=== PATIENT | male | born 1945 | race Caucasian/White ===

== ENCOUNTER 2023-05-12 07:26 | Day surgery (SDC) | payer MEDICARE, SELFPAY ==
[2023-05-12] VITALS (21 sets, daily range): BP systolic 100–170; BP diastolic 60–92; BMI 29.7
[2023-05-12] MEDS: LOW STRENGTH ASPIRIN 81 MG PO (08:10)
[2023-05-12 10:10] LABS: ACT-LR - POC 256 Seconds (116-155)
[2023-05-12 10:38] LABS: ACT-LR - POC 356 Seconds (116-155)
--- NOTE | 2023-05-12 11:21 | CONSULT.STRU ---
Addendum entered and electronically signed by NATHALY Kraus 06/03/23 06:59:
Reviewed Mr. Judge with the heart team. The team is agreeable patient is an appropriate candidate for TF TAVR utilizing a 29mm S3 via right transfemoral access. Will call to schedule.
Original Note:
Consultation
-
Date/Time Consultation Requested: 05/12/2023 1045
Date/Time Consultation Performed: 05/12/2023 11:15
Requesting Provider: Jordy Mckinney MD
Performing Provider: NATHALY Kraus
Reason for Consultation: /TAVR
Patient History
Physicians
Family Physician: Alexander Serrano MD
Outpatient Filter Tender: Helen Obando MD
Primary Filter Tender: Helen Obando MD
History of Present Illness
Mr. Judge is a very pleasant 78 yom that presents with severe symptomatic associated with GREY. His echocardiogram from 04/22/2023 is notable for an AV P/m 80/49, JAQUAN 0.9, DI 0.2, Pk Estuardo 4.48, EF 60, mild MR, PAP 30 mmHg. Discussed the
pathophysiology and treatment options of including SAVR and TAVR. Explained the evaluation process comprising of CT scan, CT surgical consult, Dental clearance, and a heart team discussion. TAVR booklet, contact information, appointments and
prescriptions given to patient. Allowed for and answered questions at bedside.
Past Medical History
Past Medical History: CAD, Cancer (colon ca, prostate ca), Valvular Disease (Aortic Stenosis) and Other (dyslipidemia, c-diff)
Past Surgical History
Past Surgical History: Tonsilectomy and Other (inguinal hernia repair, hemicolectomy)
Dental History
UTD with dental. Patient sees Dr. Robison and has an appointment 05/20. Will fax dental clearance form/
Family History
Mother: at Age
Father: at Age
Social History
Alcohol: Daily (1-2 beers)
Drug: None
Tobacco: Former Smoker
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
Allergies
Allergy/AdvReac Type Severity Reaction Status Date / Time
No Known Allergies Allergy Unverified 02/02/21 08:31
Home Medications
Medication Instructions Recorded Confirmed Type
Cholecalciferol (Vitamin D3) 50 mcg PO DAILY Supplement 02/02/21 05/12/23 History
[Vitamin D3]
allopurinol 300 mg tablet 150 mg PO QPM gout 02/02/21 05/12/23 History
cyanocobalamin (vitamin B-12) 500 mcg PO DAILY Supplement 02/02/21 05/12/23 History
1,000 mcg tablet
melatonin 10 mg capsule 10 mg PO .HS PRN sleep 02/02/21 05/12/23 History
amlodipine 5 mg tablet 5 mg PO DAILY bp 05/12/23 05/12/23 History
aspirin 81 mg chewable tablet 81 mg PO DAILY #1 tab 05/12/23 Rx
atorvastatin 40 mg tablet 40 mg PO QPM cholesterol 05/12/23 05/12/23 History
clopidogrel 75 mg tablet 75 mg PO DAILY #90 tabs 05/12/23 Rx
metoprolol tartrate 50 mg tablet 50 mg PO BID bp 05/12/23 05/12/23 History
omega 7-bwl-zua-fish oil 1,200 mg 1,200 cap PO DAILY Supplement 05/12/23 05/12/23 History
(144 mg-216 mg) capsule (Fish Oil)
STS%
STS %: 1.8
Review of Systems
-
History Source: Patient
General: Reports No Symptoms
HEENT: Reports No Symptoms
Respiratory: Reports GREY
Cardiac: Reports No Symptoms
Abdomen/GI: Reports No Symptoms
: Reports No Symptoms
Skin: Reports No Symptoms
Neurological: Reports No Symptoms
Physical Exam
Vital Signs
Temp 97.9 F 05/12/23 07:49
Temp route: Oral 05/12/23 07:49
Pulse 57 05/12/23 07:49
Resp Rate 22 05/12/23 07:49
Blood pressure 170/92 05/12/23 07:49
Blood pressure extremity used: Right upper arm 05/12/23 07:49
Position: Sitting 05/12/23 07:49
SaO2 99 05/12/23 07:49
Oxygen Mode of Delivery Room air 05/12/23 07:49
Can the patient verbally communicate their pain? Yes 05/12/23 10:47
Actual Weight 88.5 kg 05/12/23 07:49
Body Mass Index (BMI) 29.7 05/12/23 07:49
Labs
05/06/2023
HH: 14.9/43.0
Plt: 190K
BUN/Creatinine: 17/0.9
Diagnostic Studies
Echo 04/22/2023:
�CONCLUSIONS
�Normal left ventricular size and systolic function with mild concentric left
�ventricular hypertrophy
�Left ventricular ejection fraction by Byers's biplane method 60%
�Normal RV size and systolic function
�Mildly dilated left atrium
�Mildly thickened mitral valve leaflets with mild MR.
�Trace tricuspid regurgitation
�Severe aortic stenosis with peak aortic valve velocity 4.48 m/s; peak/mean
�transaortic gradients of 80/49 mmHg, respectively. The aortic valve by the
EKG 05/12/2023:
Blood Pressure : / mmHG
Vent. Rate : 049 BPM � � Atrial Rate : 049 BPM
�� P-R Int : 240 ms� � � � � QRS Dur : 074 ms
� � QT Int : 456 ms � � � P-R-T Axes : 014 002 012 degrees
�� QTc Int : 411 ms
�
SINUS BRADYCARDIA WITH 1ST DEGREE A-V BLOCK
OTHERWISE NORMAL ECG
NO PREVIOUS ECGS AVAILABLE
Confirmed by DASH NGO MD ([id number]) on 05/12/2023 11:12:12 AM
Exam
General: Well Developed
HEENT: Normocephalic
Respiratory: Clear
Cardiac: Regular Rhythm and Murmur (III/ YANG)
GI: Soft, Non Tender and Non Distended
Rectal: Deferred by Provider
Skin: Warm and Dry
Neuro: Awake, Alert, Oriented and AO x 3
Psych: Calm
Assessment / Plan
-
Aortic Stenosis
Continue TAVR evaluation
Trend creatinine (Rx given)
TAVR CT scan (05/30)
CT surgical consult (05/19 TT)
Frailty testing and KCCQ12 at consult
Dental clearance ( Will fax form)
Continue aspirin/plavix (recent CHIP)
Heart team discussion.
Data Reviewed
-
EKG: Report Reviewed by me
[place] [employer]ver: Discussed with Physician
Echo: Report Reviewed by me and Discussed with Physician
Labs: Labs Reviewed by me
Old Records: Reviewed
Total Time Spent with Patient (in minutes): 45
--- NOTE | 2023-05-12 12:38 | ITS.CL.CATH ---
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
Cardiac Catheterization
Procedure Report:
LEFT HEART CATH AND CORONARY INTERVENTION
Date of Procedure: May 12, 2023
Referring: Dr. Helen Obando
PROCEDURES:
1. Coronary angiography
2. Hemodynamic assessment of LAD with the iFR measuring below the ischemic threshold
3. Successful stenting of mid LAD with a 3.5 x 33 mm Xience stent that was implanted at nominal pressures then postdilated to high pressures initially with a 3.5 mm noncompliant balloon then in the proximal to midportion of the stent with a 3.75 mm
noncompliant balloon
INDICATION: This is a 78-year-old gentleman with a past medical history notable for hypertension, moderate coronary artery disease with prior iFR negative LAD stenosis, and aortic stenosis. He is experience some substernal chest tightness
intermittently. Symptoms at times would occur with exertion and at times would occur with minimal exertion. He has been feeling more short of breath and his most recent echocardiogram was notable for a mean aortic valve gradient of 49 mmHg and
peak aortic valve velocity of 4.48 m/s. He is now referred for coronary angiography
Note: Patient was stationed on the [employer] [place] [id number]
ACCESS: Right radial artery, 6 Frisian sheath
HEMODYNAMICS (mmHg):
AO (s/d, m) : 112/58
CORONARY FINDINGS
Dominance: Right
LEFT MAIN: Normal
LEFT ANTERIOR DESCENDING: The LAD arises normally from the left main and runs in the anterior interventricular groove. There is a 60-70% stenosis in the mid LAD just beyond the small second diagonal branch with diffuse noncritical luminal
irregularities noted throughout the remainder of the LAD. The iFR serially measured below the ischemic threshold at 0.85, 0.84, and 0.84.
CIRCUMFLEX: The circumflex is a medium caliber nondominant vessel giving rise to a single obtuse marginal branch that bifurcates in its midportion. Minor irregularities are present.
RIGHT CORONARY: The right coronary artery is a large-caliber dominant vessel
HEMODYNAMIC ASSESSMENT OF THE LAD WITH A [employer] OMNI WIRE: The origin of the left main was cannulated with a 6 Fr XB 3.5 guide catheter. Intravenous heparin was administered and the ACT was followed during the procedure. Two hundred micrograms of
intracoronary nitroglycerin was given through the guide catheter. A [employer] Omni wire was advanced to the guide catheter tip and normalized to guide catheter pressure. The Omni wire was then carefully manipulated across the stenosis in the mid LAD
and advanced to the apical LAD where the iFR serially measured below the ischemic threshold at 0.5, 0.84, and 0.84. The decision was made to proceed with percutaneous revascularization of the mid LAD stenosis. (Of note, the iFR on the last study
measured borderline at 0.90)
ANGIOPLASTY PROCEDURE DETAIL: Upon review of the diagnostic catheterization films and hemodynamic data the decision was made to proceed with percutaneous revascularization of the stenosis in the mid LAD. A 180 mg loading dose of ticagrelor was
administered at the beginning of the interventional procedure. A [employer] guidewire was advanced to the apical LAD. Primary stenting was undertaken with placement of a 3.5 x 33 mm Xience stent that was implanted at nominal pressures. The entire
stented segment was postdilated with a 3.5 mm noncompliant balloon up to 22 danae in the proximal and midportion of the stent and at 14-16 danae distally. The stent appeared modestly underexpanded just beyond the diagonal branch and a 3.75 mm
noncompliant balloon was utilized to redilate the stent again between 18 and 22 atmospheres in the proximal and midportion of the stent.
RADIATION SUMMARY: Fluoro Time (min): 9.8, Dose (mGy): 863, DAP (Gy.cm2) : 45.4
CONCLUSIONS
1. Severe symptomatic aortic stenosis
2. Hemodynamically significant mid LAD stenosis successfully stented with a 3.5 x 33 mm Xience stent that was postdilated with a 3.5 and 3.75 mm noncompliant balloon with an excellent angiographic result
RECOMMENDATIONS
1. Uninterrupted dual antiplatelet therapy between 6 and 12 months
2. Proceed with TAVR evaluation
Copy to: Dr. Helen Obando
[2023-05-12 15:45] LABS: ACT-LR - POC > 397 Seconds (116-155)
--- NOTE | 2023-05-12 16:26 | W.PN.UPDATE ---
Update Note
Progress Note Update
78 yo WM s/p PCI LAD x1 CHIP (same day). He feels good, no cp, sob, luli diet, voiding, amb w/o dizziness. EKG SR no ST changes, R Rad site c/d/i. He was given Brilinta load and switched to plavix 600mg prior to d/c. DAPT ASA/Plavix. He has severe
and will undergo w/u outpt for TAVR. Cardiac rehab c/s. Activity restrictions reviewed. He has f/u apt with CT surgery next week. He is for d/c home after 430p.
Referring: Dr. Helen Obando
PROCEDURES:
1.� Coronary angiography
2.� Hemodynamic assessment of LAD with the iFR measuring below the ischemic threshold
3.� Successful stenting of mid LAD with a 3.5 x 33 mm Xience stent that was implanted at nominal pressures then postdilated to high pressures initially with a 3.5 mm noncompliant balloon then in the proximal to midportion of the stent with a 3.75 mm
noncompliant balloon
INDICATION: This is a 78-year-old gentleman with a past medical history notable for hypertension, moderate coronary artery disease with prior iFR negative LAD stenosis, and aortic stenosis.� He is experience some substernal chest tightness
intermittently.� Symptoms at times would occur with exertion and at times would occur with minimal exertion.� He has been feeling more short of breath and his most recent echocardiogram was notable for a mean aortic valve gradient of 49 mmHg and
peak aortic valve velocity of 4.48 m/s.� He is now referred for coronary angiography
== END 2023-05-12 16:13 | disposition home or self-care (01) ==
LOC: CATH 07:26
PROVIDERS: ATTENDING PHYSICIAN Internal Medicine Interventional Cardiology; FAMILY PHYSICIAN Internal Medicine; OTHER PHYSICIAN Internal Medicine Cardiovascular Disease
DX: I25.10 Atherosclerotic heart disease of native coronary artery without angina pectoris (principal); I10 Essential (primary) hypertension; I35.0 Nonrheumatic aortic (valve) stenosis; R07.89 Other chest pain; R06.02 Shortness of breath; Z79.02 Long term (current) use of antithrombotics/antiplatelets; Z79.82 Long term (current) use of aspirin
CPT/HCPCS: 85347; 93005; 93454; 93571; C1725; C1769; C1874; C1887; C1894; C9600; Q9967

== ENCOUNTER → 2023-05-23 07:57 | Outpatient (REF) | payer MEDICARE, SELFPAY | LOC: RAD 07:57 | PROVIDERS: ATTENDING PHYSICIAN Nurse Practitioner Acute Care; FAMILY PHYSICIAN Internal Medicine | DX: I35.0 Nonrheumatic aortic (valve) stenosis (principal) | CPT/HCPCS: 74174; 75572; Q9967 ==

== ENCOUNTER 2023-06-16 05:31 | Inpatient (IN) | payer MEDICARE, SELFPAY ==
[2023-06-08 11:57] VITALS: BMI 28.2
[2023-06-08 12:43] LABS: % Basophils 0.7 % (0-2); % Immature Granulocytes 0.4 % (0-0.5); % Lymphocytes 15.6 % (20.5-51.1); % Monocytes 6.7 % (1.7-9.3); % Neutrophils 68.6 % (42.2-75.2); Absolute Eosinophils 0.4 10^3/uL (0-0.7); Absolute Lymphocytes 0.7 10^3/uL (1.2-3.4); Absolute Monocytes 0.3 10^3/uL (0.1-0.6); Absolute Neutrophils 3.2 10^3/uL (1.4-6.5); Hematocrit 39.3 % (39.0-52.0); Mean Corp Hgb Conc. 35.6 g/dL (33.0-37.0); Mean Corpuscular Hgb 31.9 pg (27.0-31.0); Mean Corpuscular Volume 89.5 fL (80.0-94.0); Mean Platelet Volume 9.3 fL (7.4-10.4); Nucleated Red Blood Cells % 0 % (-); Platelet Count 175 10^3/uL (130-400); Red Blood Cell Count 4.39 10^6/uL (4.70-6.10); Red Cell Dist. Width 12.8 % (11.5-14.5); White Blood Cell Count 4.6 10^3/uL (4.8-10.8)
[2023-06-08 12:54] LABS: INR 0.98
[2023-06-08 12:55] LABS: APTT 33.3 Sec (23.4-35.0)
[2023-06-08 12:57] LABS: ALT (SGPT) 20 U/L (0-50); AST (SGOT) 22 U/L (17-59); Albumin 4.2 g/dl (3.5-5.0); Alkaline Phosphatase 77 U/L (38-126); Blood Urea Nitrogen 21 mg/dl (9-20); Calcium 9.4 mg/dl (8.4-10.2); Carbon Dioxide 27 mmol/L (22-30); Chloride 101 mmol/L (98-107); Direct Bilirubin 0.3 mg/dl (0.0-0.4); Estimated Creatinine Clearance 70 ml/min; Glucose 110 mg/dl (70-99); Potassium 4.5 mmol/L (3.5-5.1); Sodium 137 mmol/L (135-145); Total Bilirubin 1.3 mg/dl (0.2-1.3); Total Protein 7.5 g/dl (6.3-8.2); eGFR > 60.00
[2023-06-08 13:01] LABS: Urine Albumin Negative (Neg - Trace); Urine Bilirubin Negative (Negative); Urine Character Clear (Clear); Urine Color Yellow; Urine Glucose Negative (Negative); Urine Ketone Negative (Negative); Urine Leukocyte Negative (Negative); Urine Nitrite Negative (Negative); Urine Occult Blood Negative (Negative); Urine Specific Gravity 1.025 (<1.030); Urine Urobilinogen Negative (Neg - 1+)
[2023-06-08 13:06] LABS: NT-proBNP 117 pg/ml
--- NOTE | 2023-06-08 14:17 | CM ---
Chart reviewed. Met with the patient in PAT. Patient is independent of ADLS, lives with his in a 2 STH, 2 TROY, 0 DME. Reviewed preoperative and postoperative instructions and restrictions, along with showering guidelines. Gave patient 2
soaps. Patient is agreeable to a home visit by CT Transitional RN. Plan is for the patient to return home with CT Transitional RN.
[2023-06-08 14:24] LABS: Glycohemoglobin (HgbA1c) 5.5 % (4.0-5.6)
--- NOTE | 2023-06-08 14:38 | W.PN.UPDATE ---
Update Note
Progress Note Update
Patient seen in pre-admission testing. Medication list verifed. Reviewed risks of TAVR including PPM, Bleeding and Stroke. Allowed for and answered questions. Patient will arrive at 0530 on 06/16/2023. He will remain on his aspiring and plavix and
take dose prior to arrival that day. He is aware he will receive a call next Tue. to confirm arrival time.
[2023-06-16] VITALS (29 sets, daily range): BP systolic 78–134; BP diastolic 52–74; BMI 27.6
--- NOTE | 2023-06-16 06:14 | PTCARENOTE ---
Pt rec'd as direct adm from home for TAVR. Adm hx taken. 20 g placed in right arm with ABO sent. Pt clipped and washed with chg wipes.
sinus on telemetry. spouse at bedside
[2023-06-16] MEDS: ZINACEF 1500 MG IV ×2 (07:00→08:00)
[2023-06-16] MEDS: STERILE WATER FOR INJECTION 16 ML IV ×2 (07:00→08:00)
[2023-06-16 08:21] LABS: ACT-LR - POC 350 Seconds (116-155)
--- NOTE | 2023-06-16 08:53 | W.CVOR.SURPR ---
CVOR Surgeon Immed Pre Op
-
I have examined this patient prior to performance of the scheduled procedure.
The patient's condition is unchanged from the time of the dictated/written History and
Physical and the patient is able to undergo the scheduled procedure.
--- NOTE | 2023-06-16 08:53 | W.IMMPOSTOP ---
Surgical Immed Post Op Note
-
Dicated: [id number]
STRUCTURAL HEART PROCEDURE NOTE: TAVR
Preoperative Dx:
Severe aortic stenosis (P/M: 80/49), trace AI
Colon CA (s/p XRT)
HTN/HLD
CAD s/p recent LAD stent
Hx of C-diff
Hx of Prostate CA
Postoperative Dx:
Same
Procedures:
1) L MOTORCYCLE DESIGNER access w/ tactile, U/S, and fluoroscopic guidance, micropuncture technique, 6Fr sheath placement
2) L CFV access w/ U/S and fluoroscopic guidance, seldinger technique, 6Fr sheath placement
3) R MOTORCYCLE DESIGNER access w/ tactile, U/S, and fluoroscopic guidance, micropuncture technique, limited angiography, 6Fr sheath placement
4) Placement of pigtail catheter in RCC w/ repeat aortography & determination of ideal co-planar valve deployment angle
5) Placement of temporary RV pacing wire w/ threshold testing
6) Placement of perclose sutures x 2 into R MOTORCYCLE DESIGNER, 8Fr sheath placement
7) Placement of Dan E-sheath
8) Wire purchase across stenotic AV (LVEDP assessment; 22mmHg)
9) R TF TAVR w/ placement of 29mm UGO 3
10) Completion aortography
11) Completion TTE (mean 4/5, no AI)
12) Removal of valve delivery system/Dan E-sheath w/ R MOTORCYCLE DESIGNER mgmt w/ perclose sutures x 2, 8Fr angioseal, manual pressure; completion angiography
13) Limited angiography of L MOTORCYCLE DESIGNER
14) Removal of L MOTORCYCLE DESIGNER 6Fr sheath w/ mgmt w/ 6Fr angioseal, manual pressure
15) Removal of temporary pacing wire & L CFV sheath, manual pressure
Station Engineer Chief:
Dr. Jordy Mckinney
Cardiac Surgeon:
Dr. Deepak Cook
Anesthesia:
MAC & local to B/L groins
Implants:
Perclose sutures x 2
8Fr angioseal x 1
6Fr angioseal x 1
Dan [employer], Model [id number], SN [id number], 29mm
Cath Data:
Start: 0743hrs, Deploy: 0821hrs, End: 0837hrs
FT: 9.8min, mGy: 585.39, DAP: 67.3662, Contrast: 112mL
Post-TTE: mean gradient 4-5mmHg, no AI
Complications:
None
Condition:
Stable/guarded to recovery
--- NOTE | 2023-06-16 09:17 | ITS.CL.TAVR ---
Substance Abuse Technician - TAVR Report
TAVR PRocedure
Procedure Report:
TRANSCATHETER AORTIC VALVE REPLACEMENT
Date of Procedure: June 16, 2023
Referring: Dr. Helen Obando
Operators: Drs. Jordy Mckinney and Deepak Cook
PROCEDURE PERFORMED:
1. Successful placement of 29 mm Dan Ilene S3 aortic valve via right common femoral approach.
PREPROCEDURE NYHA CLASS: 3
DESCRIPTION OF PROCEDURE: The patient was referred for assessment of severe symptomatic aortic stenosis and following a comprehensive evaluation it was felt that transcatheter aortic valve replacement (TAVR) would be the most appropriate treatment.
Informed consent was obtained prior to the procedure. A 'time-out' was called and the procedural plan was verbally confirmed by anesthesia, surgery, perfusion, and chemical laboratory technician staff.
Arterial and venous access site were obtained in the left common femoral artery and common femoral vein using ultrasound guidance and micropuncture technique. 6 Fr sheaths were inserted. Ultrasound guidance was then used to obtain arterial access
in the right common femoral artery and a 6 Fr. sheath was inserted. Angiography was performed and the arteriotomy site appeared appropriate for preclosure with two Perclose devices.
A 5 Fr transvenous pacing wire was advanced to the right ventricle where excellent pacing thresholds were obtained. A 5 Fr. pigtail catheter was then advanced to the proximal ascending aorta/right aortic cusp where angiography was performed in
multiple angles to define the co-planar angle that was most appropriate valve deployment (SNYDER 8/CAU 6).
Attention was then turned back to the right common femoral arteriotomy. Preclosure with 2 Perclose devices was performed and an 8 Fr sheath was then inserted back into the common femoral artery over a J-tipped guidewire. An AL1 catheter was then
advanced over the J-wire to the proximal descending aorta. An Amplatz Extra Stiff 0.035' J-tip wire was inserted to provide extra-support to facilitate the Dan eSheath delivery. The 16 Fr. Dan eSheath was advanced to the right common
femoral arteriotomy site and gently advanced to the descending thoracic aorta.
An AL1 catheter was advanced through the Dan eSheath over a 0.035' J-tip guide wire. The AL1 catheter was positioned just above the aortic valve. A 0.035' Straight tip wire probed the aortic valve and crossed the stenotic leaflets. The AL1
was then advanced to the mid left ventricle where the LVEDP measured 22 mmHg. An Amplatz Extra-stiff wire with a generous curved tip was then positioned in the left ventricular apex. A 29 mm Dan Ilene S3 valve was brought to the table and the
orientation of the valve on the balloon delivery system was confirmed by all operators. The Ilene S3 valve was advanced through the eSheath and into the proximal descending thoracic aorta. The Ilene S3 valve was centered on the delivery balloon
and the entire system was retroflexed as it crossed the aortic arch. The Ilene S3 delivery system was then advanced across the stenotic valve and the 29 mm Ilene S3 valve was deployed during rapid pacing. The valve deployment was uneventful.
Transthoracic echocardiographic images post valve deployment revealed minimal aortic insufficiency with excellent position of the aortic prosthesis. The post valve deployment mean gradient measured 4 mmHg.
The Dan balloon and delivery system were then removed. The Dan sheath was removed and the Perclose knots were advanced to the arteriotomy site. There was a significant residual ooze from the right femoral arteriotomy and an 8 Fr. Angioseal
was inserted with excellent result. Angiography demonstrated no iliofemoral issues.
Fluoro Time: 9.8 min, Dose: 585 mGy, DAP : 67.4 Gy.cm2
CONCLUSIONS:
1. Severe symptomatic aortic stenosis. Successful deployment of a 29 mm Ilene S3 valve with no aortic insufficiency and a mean gradient of 4 mmHg
Copy to: Dr. Helen Obando
[2023-06-16] MEDS: VITAMIN D3 (cholecalciferol) PO (10:00)
[2023-06-16] MEDS: LOPRESSOR PO (10:00)
--- NOTE | 2023-06-16 11:12 | CM ---
Chart reviewed. Patient is in the OR today. Patient is independent of ADLS, lives with his in a 2 STH, 2 TROY, 0 DME. Plan is for the patient tor return home with CT Transitional RN. CM to follow
--- NOTE | 2023-06-16 11:12 | PTCARENOTE ---
Received patient post TAVR back into room 224. Patient is AAO x 3, no complaints of pain, lying supine in the bed. On RA with pulse ox of 98%, SR on the monitor. Scant drainage on dressing left groin which was marked. Drainage now noted on dressing
right groin which was marked. Bilateral groins soft, with no signs of hematoma. Strong bilateral pedal pulses palpated. Neuro check within normal limits. Family at the bedside, monitoring VS, call morejon within reach.
--- NOTE | 2023-06-16 13:10 | PTCARENOTE ---
Right groin dressing with moderate amount of drainage contained on 2x2 with tegaderm, otherwise area soft with strong pedal pulse. CT surgery PA notified and dressing changed. Dressing now checked prior to sitting the patient up and drainage again
noted and marked. Right groin soft with no signs of hematoma. TT sent to CT surgery PA coordinator of online programs.
--- NOTE | 2023-06-16 15:18 | PTCARENOTE ---
Right groin dressing changed by CT surgery NEFTALI. Patient assisted to the bathroom and voided qs. Right groin dressing remains clean, dry and intact. Resting in bed, offers no complaints.
[2023-06-16] MEDS: VITAMIN B-12 PO (15:26)
[2023-06-16] MEDS: STERILE WATER FOR INJECTION 8.30000000000000071 ML IV (15:28)
[2023-06-16] MEDS: ZINACEF 750 MG IV (15:28)
[2023-06-16] MEDS: FLUSH (NSS) 2 FLUSH IV (15:29)
[2023-06-16] MEDS: NORVASC 5 MG PO (17:39)
[2023-06-16] MEDS: LIPITOR 40 MG PO (17:39)
[2023-06-16] MEDS: LOPRESSOR 50 MG PO (20:33)
[2023-06-16] MEDS: VITAMIN D3 (cholecalciferol) 50 MCG PO (20:33)
[2023-06-16] MEDS: ZYLOPRIM 150 MG PO (22:33)
[2023-06-16] MEDS: ASPIR LOW (ENTERIC COATED) 81 MG PO (22:33)
--- NOTE | 2023-06-16 22:52 | PTCARENOTE ---
assumed care of patient at the change of shift. AAOx3. neuro intact. ambulating in the room independently, steady on his feet. HR SR with a first degree AVB 70s-80s. bp stable. denies any pain/sob. b/l groin sites intact, no new drainage, soft. + DP
pulses. IS encouraged. educated patient to inform RN with any changes. call morejon within reach. calls appropriately.
[2023-06-17 04:06] VITALS: BP 123/71
[2023-06-17 04:26] LABS: Hematocrit 33.4 % (39.0-52.0); Hemoglobin 11.9 g/dL (13.0-18.0); Mean Corp Hgb Conc. 35.6 g/dL (33.0-37.0); Mean Corpuscular Hgb 31.6 pg (27.0-31.0); Mean Corpuscular Volume 88.8 fL (80.0-94.0); Mean Platelet Volume 9.2 fL (7.4-10.4); Platelet Count 111 10^3/uL (130-400); Red Blood Cell Count 3.76 10^6/uL (4.70-6.10); Red Cell Dist. Width 12.6 % (11.5-14.5)
[2023-06-17 05:14] LABS: Blood Urea Nitrogen 17 mg/dl (9-20); Calcium 8.6 mg/dl (8.4-10.2); Carbon Dioxide 24 mmol/L (22-30); Chloride 101 mmol/L (98-107); Estimated Creatinine Clearance 79 ml/min; Glucose 98 mg/dl (70-99); Potassium 4.2 mmol/L (3.5-5.1); Sodium 133 mmol/L (135-145); eGFR > 60.00
[2023-06-17 06:00] VITALS: BMI 27.9
--- NOTE | 2023-06-17 06:58 | W.PN.CT ---
Today's Communication / Plan
-
-pod #1
-no issues overnight
-nsr 70s overnight. No bre or pause. 4 beat run PVCs early postop. Continue bid Lopressor
-Echo today
-current meds (ASA, Plavix, Lopressor, Norvasc, Lipitor)
-encourage IS, OOB
Assessment / Plan
-
- Severe symptomatic - s/p R TF TAVR w/ placement of 29mm UGO 3 on 06/16/23, pod #1
-LVEDP assessment- 22mmHg
-Post-TTE: mean gradient 4-5mmHg, no AI
- Colon CA (s/p XRT/chemo and hemicolectomy 2012)
- HTN/HLD
- CAD s/p recent LAD stent 05/12/23- on ASA and Plavix preop
- Hx of C-diff
- Hx of Prostate CA with seed implant
- Inguinal hernia
Discussed patient care with: Nursing and Care Team
Subjective
Procedure
- s/p R TF TAVR w/ placement of 29mm UGO 3 on 06/16/23
-
Date of Service: June 16, 2023
Objective Data
-
Lab Results
06/08/23 12:08
06/08/23 12:08
PT 13.0 Sec (11.4-14.6) 06/08/23 12:08
INR 0.98 06/08/23 12:08
APTT 33.3 Sec (23.4-35.0) 06/08/23 12:08
Vital Signs
Vital Signs
Temp Pulse Resp BP Pulse Ox
98.9 F 70 18 119/68 96
06/16/23 22:34 06/16/23 21:30 06/16/23 22:34 06/16/23 20:33 06/16/23 22:34
CT Intake/Output/Weight
06/16/23 06/16/23 06/17/23
06:59 18:59 06:59
Intake Total 720 / 960 240 / 960
Output Total 850 / 850
Balance -130 / 110 240 / 110
SaO2: 96
Physical Exam
-
General: Awake and AOx3
Cardiovascular: Regular rate & rhythm, No Murmurs and No Rub
Respiratory: Clear
Incision: Other (groins are cdi, soft, nontender, no hematoma b/l)
Extremities: No Edema (2+ palpable DPs b/l)
Data Reviewed
-
Lab Results: Results Reviewed
Medications: Active Meds Reviewed
Chest X-Ray: Report Reviewed and Image Reviewed
ECG: Report Reviewed and Image Reviewed
[2023-06-17 07:19] VITALS: BP 113/67
[2023-06-17] MEDS: PLAVIX 75 MG PO (09:11)
[2023-06-17] MEDS: LOPRESSOR 50 MG PO (09:11)
[2023-06-17] MEDS: VITAMIN D3 (cholecalciferol) 50 MCG PO (09:12)
[2023-06-17] MEDS: VITAMIN B-12 500 MCG PO (09:12)
--- NOTE | 2023-06-17 09:51 | W.PN.CARDCBS ---
Addendum entered and electronically signed by Dilan Grace MD 06/17/23 15:24:
I saw and examined the patient.
The IGNITER CAPPER or PA's note was reviewed and I agree with the note.
Comment: General: Well developed, well nourished in NAD.
Neck: Supple, no JVD, HJR, carotids +2 B/L, no bruits bilaterally.
Heart: Non displaced PMI, RRR, no murmurs, No S3, S4, no rubs.
Lungs: Clear to auscultation bilaterally, no wheeze, rhonchi, rubs bilaterally,
normal expiratory phase.
Extremities: No clubbing, cyanosis or edema bilaterally.
Neuro: Grossly nonfocal, awake, alert and oriented x3.
Stable cardiology status for discharge. Repeat echo okay. Discussed with family at bedside and CT surgery. Follow-up arranged
Original Note:
Today's Communication / Plan
-
Repeat echo today
Likely for discharge this afternoon.
Continue aspirin and plavix
Impression / Plan
-
PCP: Dr. Serrano
Clipping Marker: Dr. Obando
Impression:
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
CAD
s/p PCI of LAD w/ 3.5 x33 mm Xience CHIP 05/12/2023
HTN
HLD
Colon cancer
h/o prostate cancer
Echo 04/22/2023: EF 60%, mild cLVH, mild MR, severe with peak/mean gradients 80/49 mmHg, trace TR, estimated PAP 30 mmHg
Echo 06/17/2023: study pending
Plan:
-He has a history of symptomatic severe and underwent TAVR 06/17/2023. POD #1.
-Post op echo w/ mean gradient 4 mmHg. Repeat echo pending today.
-Feeling well this AM, walking around his room without difficulty.
-Did have brief 4 run of NSVT noted on tele yesterday afternoon. Asymptomatic.
-BP and HR stable. Continue amlodipine and lopressor.
-Continue aspirin and plavix with recent PCI to LAD.
-On lipitor 40mg daily.
-Likely for d/c later today.
Progress Note - Clipping Marker
Subjective
Date of Service: June 17, 2023
Feeling well. No complaints.
Objective
Labs:
06/17/23 04:15
06/17/23 04:15
Labs
Hgb 11.9 g/dL (13.0-18.0) L 06/17/23 04:15
Hct 33.4 % (39.0-52.0) L 06/17/23 04:15
Plt Count 111 10^3/uL (130-400) L 06/17/23 04:15
PT 13.0 Sec (11.4-14.6) 06/08/23 12:08
INR 0.98 06/08/23 12:08
APTT 33.3 Sec (23.4-35.0) 06/08/23 12:08
Sodium 133 mmol/L (135-145) L 06/17/23 04:15
Potassium 4.2 mmol/L (3.5-5.1) 06/17/23 04:15
BUN 17 mg/dl (9-20) 06/17/23 04:15
Creatinine 0.8 mg/dL (0.7-1.3) 06/17/23 04:15
Glucose 98 mg/dl (70-99) 06/17/23 04:15
Vital Signs and I&O:
Vital Signs
Temp Pulse Resp BP Pulse Ox
98.4 F 70 16 113/67 95
06/17/23 07:18 06/17/23 07:30 06/17/23 07:18 06/17/23 07:19 06/17/23 09:06
Vital Signs
Temp Pulse Resp BP Pulse Ox
98.4 F 70 16 113/67 95
06/17/23 07:18 06/17/23 07:30 06/17/23 07:18 06/17/23 07:19 06/17/23 09:06
Intake & Output
06/15/23 06/16/23 06/17/23 06/18/23
06:59 06:59 06:59 06:59
Intake Total 960 / 960
Output Total 850 / 850
Balance 110 / 110
Physical Exam
Physical Exam
GEN: No distress, awake, alert, oriented x3
HEENT: supple, anicteric, mmm
LUNGS: CTA b/l, no wheezes/rales
CV: Reg, S1/S2, no murmur
ABD: soft, BS+, NT/ND
EXT: No clubbing, cyanosis, or edema
NEURO: Gross non-focal
SKIN: Warm, dry, no rash
--- NOTE | 2023-06-17 10:35 | CM ---
Chart reviewed. Patient is independent of ADLS, lives with his in a 2 [address], 2 [facility], 0 DME. Plan is for the patient to return home with CT Transitional RN. CM to follow
--- NOTE | 2023-06-17 11:04 | W.DCSUMMARY ---
Discharge Summary
Discharge Data
Date of Admission: 06/16/23
Date of Discharge: 06/17/23
Total time spent discharging patient (in min): 25
-
Pending Results: No
Hospital Course
Primary care physician:
Dr. Alexander Serrano
Outpatient rcis:
Dr. Helen Obando
Inpatient consultants:
[facility]
Procedures:
1. Right transfemoral transcatheter aortic valve replacement with #29mm Ilene 3 valve
Primary Diagnosis:
1. Severe aortic stenosis
Secondary Diagnoses:
1. Colon carcinoma
2. Hypertension
3. Hyperlipidemia
4. Coronary artery disease
HPI: 71-year-old male with past medical history of severe aortic stenosis presents 06/15 elective transcatheter aortic valve replacement with Dr. Cook.
Hospital course: Patient received a right transfemoral transcatheter aortic valve replacement with Dr. Cook. He was sent to the cardiac [facility] recovery area postoperatively. He had some transient hypotension which resolved with a normal saline
bolus. His right groin had some drainage that improved with manual pressure. Postop EKG was stable and he was sent to the telemetry unit for the rest of his postoperative recovery. On 3 postop day #1, patient's chest x-ray remained stable.
Repeat echocardiogram showed a peak/mean gradient of 18/10 mmHg.� Trace aortic
�regurgitation is seen. There was no major changes to his home medications and patient was deemed stable for discharge.
Home medication changes:
None
Discharge Plan
-
Patient Disposition: Home (Routine Discharge)
Discharge Diagnosis/Procedures: TF-TAVR
Condition: Fair
Diet: Low Cholesterol and 2 Gram Sodium
Activity: No strenuous activity
Driving Restrictions: No driving for 1 week
Bathing Restrictions: OK to Shower
Others Tests: 30 Day Follow Up echocardiogram has been scheduled for you on 07/08/2023 at 7:20am in the [facility].
Other Services: Cardiac Rehab
Wound Care: Please do not apply lotions, creams or powders to groin areas. Please monitor groins for increased pain, redness, swelling, drainage. Notify your doctor if any occur.
Specialty Instructions: Weigh Daily- Call MD for wt gain/loss 3 lbs overnight/5 lbs in 1 week
Referrals:
CT Transitional Care Nurse [Outside] (The Cardiothoracic Transitional Care Nurse will call you to set up a visit in 1-2 days.)
[facility]. Cardiac Rehab [Outside] - 07/25/23 8:00 am
(Cardiac Rehab Orientation appointment is on 07/25/23 at 8:00 am
The Cardiac Rehab gym is located on the first floor of the [facility].)
Alexander Serrano MD [Family Provider] -
Lana Campo PA-C [Specified Professional Personl] - 07/13/23 11:00 am
Prescriptions:
New
acetaminophen 325 mg Tablet
650 mg PO Q4HPRN PRN (Reason: DARDEN, mild pain, or fever >101F) Qty: 0 0RF
Continued
cyanocobalamin (vitamin B-12) 1,000 MCG tablet
500 mcg PO DAILY
allopurinol 300 MG tablet
150 mg PO HS
atorvastatin 40 MG tablet
40 mg PO QPM
metoprolol tartrate 50 MG tablet
50 mg PO BID
Rx Instructions:
Please note increased dose
clopidogrel [clopidogrel] 75 mg tablet
75 mg PO DAILY Qty: 90 10RF
cholecalciferol (vitamin D3) [Vitamin D3] 50 mcg (2,000 unit) Capsule
50 mcg PO BID
amlodipine 5 MG tablet
5 mg PO QPM Qty: 0 0RF
aspirin 325 mg Tablet
81 mg PO HS Qty: 0 0RF
Patient Comments:
1/4 tablet
dimenhydrinate [Dramamine] 50 mg Tablet
25 mg PO HS Qty: 0 0RF
Held
omega [id number] oil [Fish Oil] 1,200 (144-216) mg Capsule
1,200 cap PO DAILY
Hold Instructions: Resume on 07/11/23.
Care Plan Goals
Care Plan Goals:
Problem: Readiness for enhanced knowledge related to diagnosis and treatment plan
Goal: Understand your diagnosis and treatment plan needs, including medications if applicable.
Instructions: Know your diagnosis, underlying causes and treatment plan options, including medications if applicable. Consult with your health care team to learn about your diagnosis and treatment plan, including medications if applicable.
--- NOTE | 2023-06-17 11:23 | W.PN.ANS.POP ---
Anesthesia Post Operative
- Anesthesia Post Op Note
Vital Signs Stable-See Nursing Note: Yes
Airway Patent: Yes
Adequate Pain Control: Yes
Change in Mental Status: No
Current Postoperative Nausea & Vomiting: No
Anesthesia Complications: No
General Anesthetic Recall: No
Unplanned Admission: No
Post Op Hydration Adequate: Yes
[2023-06-17 11:31] VITALS: BP 128/68
[2023-06-17 11:49] VITALS: BP 132/69
[2023-06-17 11:55] VITALS: BP 136/74
[2023-06-17 12:00] VITALS: BP 132/69; BP 136/74; PULSE 72; O2SAT 97; O2SAT 99
--- NOTE | 2023-06-17 13:48 | PTCARENOTE ---
Echo done in Dept. Pt seen by cardiac rehab, NEFTALI Medranon . Telemetry and IV device removed. Discharge instructions reviewed amandeep pt and his regarding activity and driving guidelines, wound care, CHF guidelines, medications ,
reporting cares and concerns and follow up appts. Very good understanding verbalized. Pt escorted out via wheelchair and discharged to home.
== END 2023-06-17 13:54 | disposition home or self-care (01) | DRG 267 ==
LOC: IVU 05:31
PROVIDERS: Nurse Practitioner; ADMITTING PHYSICIAN Thoracic Surgery (Cardiothoracic Vascular Surgery); FAMILY PHYSICIAN Internal Medicine
PROC: 02RF38Z Replacement of Aortic Valve with Zooplastic Tissue, Percutaneous Approach (ICD-10-PCS; 2023-06-16)
DX: I35.2 Nonrheumatic aortic (valve) stenosis with insufficiency (principal); Z00.6 Encounter for examination for normal comparison and control in clinical research program; I10 Essential (primary) hypertension; E78.5 Hyperlipidemia, unspecified; I25.10 Atherosclerotic heart disease of native coronary artery without angina pectoris; Z79.82 Long term (current) use of aspirin; Z79.899 Other long term (current) drug therapy; Z85.038 Personal history of other malignant neoplasm of large intestine; Z85.46 Personal history of malignant neoplasm of prostate; Z92.21 Personal history of antineoplastic chemotherapy; Z92.3 Personal history of irradiation; Z95.5 Presence of coronary angioplasty implant and graft
CPT/HCPCS: 93308; 33361; 36415; 71045; 71046; 76937; 80048; 80053; 81003; 82248; 83036; 83880; 85025; 85027; 85347; 85610; 85730; 86850; 86900; 86901; 86920; 87070; 93005; 93306; 93321; 93325; C1760; C1769; C1894; Q9967

== ENCOUNTER → 2023-07-08 07:19 | Outpatient (REF) | payer MEDICARE, SELFPAY | LOC: DHCBS MAIN 07:19 | PROVIDERS: ATTENDING PHYSICIAN Internal Medicine Cardiovascular Disease; FAMILY PHYSICIAN Internal Medicine | DX: I35.0 Nonrheumatic aortic (valve) stenosis (principal) | CPT/HCPCS: 93306 ==

== ENCOUNTER 2023-08-08 08:24 | Outpatient (RCR) | payer MEDICARE, SELFPAY | END 2023-08-08 23:59 | disposition home or self-care (01) | LOC: CRHB 08:24 | PROVIDERS: ATTENDING PHYSICIAN Internal Medicine Cardiovascular Disease | DX: I35.0 Nonrheumatic aortic (valve) stenosis (principal); Z95.4 Presence of other heart-valve replacement; I25.10 Atherosclerotic heart disease of native coronary artery without angina pectoris | CPT/HCPCS: G0422; G0423 ==

== ENCOUNTER 2023-09-09 11:31 | Outpatient (RCR) | payer MEDICARE, SELFPAY | END 2023-09-09 23:59 | disposition home or self-care (01) | LOC: CRHB 11:31 | PROVIDERS: ATTENDING PHYSICIAN Internal Medicine Cardiovascular Disease; FAMILY PHYSICIAN Internal Medicine | DX: I35.0 Nonrheumatic aortic (valve) stenosis (principal); I25.10 Atherosclerotic heart disease of native coronary artery without angina pectoris; Z95.4 Presence of other heart-valve replacement | CPT/HCPCS: G0422; G0423 ==

== ENCOUNTER 2023-10-07 08:33 | Outpatient (RCR) | payer MEDICARE, SELFPAY | END 2023-10-07 23:59 | disposition home or self-care (01) | LOC: CRHB 08:33 | PROVIDERS: ATTENDING PHYSICIAN Internal Medicine Cardiovascular Disease; FAMILY PHYSICIAN Internal Medicine | DX: I35.0 Nonrheumatic aortic (valve) stenosis (principal); Z95.4 Presence of other heart-valve replacement | CPT/HCPCS: G0422; G0423 ==

== ENCOUNTER 2023-10-21 08:29 | Outpatient (RCR) | payer MEDICARE, SELFPAY | END 2023-10-21 23:59 | disposition home or self-care (01) | LOC: CRHB 08:29 | PROVIDERS: ATTENDING PHYSICIAN Internal Medicine Cardiovascular Disease; FAMILY PHYSICIAN Internal Medicine | DX: I35.0 Nonrheumatic aortic (valve) stenosis (principal); Z95.4 Presence of other heart-valve replacement | CPT/HCPCS: G0422; G0423 ==

== ENCOUNTER → 2024-01-12 08:05 | Outpatient (REF) | payer MEDICARE, SELFPAY | LOC: RCS 08:05 | PROVIDERS: ATTENDING PHYSICIAN Internal Medicine Cardiovascular Disease; FAMILY PHYSICIAN Internal Medicine | DX: I35.0 Nonrheumatic aortic (valve) stenosis (principal); Z95.2 Presence of prosthetic heart valve | CPT/HCPCS: 93306 ==

== ENCOUNTER → 2025-01-30 07:58 | Outpatient (REF) | payer MEDICARE, SELFPAY | LOC: RCS 07:58 | PROVIDERS: ATTENDING PHYSICIAN Internal Medicine Cardiovascular Disease; FAMILY PHYSICIAN Internal Medicine | DX: Z95.2 Presence of prosthetic heart valve (principal) | CPT/HCPCS: 93306 ==